=== PATIENT | female | born 1990 | race Caucasian/White ===

== ENCOUNTER 2019-06-13 16:14 | Outpatient (CLI) | payer OTHER ==
[2019-06-13] MEDS ORDERED: OBSTETRIX DHA1 EACH (16:45)
== END 2019-06-14 10:52 | disposition home or self-care (01) ==
LOC: OBS/DEL 16:14
DX: O60.03 Preterm labor without delivery, third trimester (principal)

== ENCOUNTER 2019-09-03 19:53 | Inpatient (IN) | payer OTHER ==
[~2019-09-03] VITALS: Ht 160 cm; Wt 53.5 kg
[~2019-09-03 19:53] MED LIST: OBSTETRIX DHA1 EACH
[2019-09-03] MEDS ORDERED: PRENATAL TABLE1 EACH PO (21:30)
== END 2019-09-05 11:51 | disposition home or self-care (01) | DRG 807 ==
LOC: LDR 19:53 → OB/GYN 23:17
PROVIDERS: ADMIT Obstetrics & Gynecology
PROC: 10E0XZZ Delivery of Products of Conception, External Approach (ICD-10-PCS; principal; 2019-09-03)
PROC: 0HQ9XZZ Repair Perineum Skin, External Approach (ICD-10-PCS; 2019-09-03)
PROC: 4A1HXFZ Monitoring of Products of Conception, Cardiac Rhythm, External Approach (ICD-10-PCS; 2019-09-03)
PROC: 3E033VJ Introduction of Other Hormone into Peripheral Vein, Percutaneous Approach (ICD-10-PCS; 2019-09-03)
DX: O70.0 First degree perineal laceration during delivery (principal); Z37.0 Single live birth; Z3A.39 39 weeks gestation of pregnancy